=== PATIENT | female | born 1970 | race Caucasian/White ===

== ENCOUNTER → 2023-06-16 09:29 | Outpatient (BNVA) | payer OTHER, SELFPAY | PROVIDERS: PCP Hospitalist; Visit Provider Physician Assistant Medical | DX: M54.42 Lumbago with sciatica, left side (principal) | CPT/HCPCS: 99202 ==

== ENCOUNTER → 2023-07-02 15:02 | Outpatient (BNVA) | payer OTHER, SELFPAY | PROVIDERS: PCP Hospitalist; Visit Provider Physician Assistant | DX: M54.42 Lumbago with sciatica, left side (principal) | CPT/HCPCS: 99213 ==

== ENCOUNTER 2025-04-23 12:15 | Emergency (ER) | payer BC, SELFPAY ==
--- NOTE | ~2025-04-23 | CT_ITS ---
CLINICAL HISTORY: weakness, SOB, hx of clotting disorder CT angiography chest with contrast. 3D Postprocessing. Comparison: None provided Findings: The heart is normal size. RV/LV ratio is normal. Unremarkable thoracic aorta and great vessels. No aneurysm. No acute pulmonary embolus. No mediastinal adenopathy or pericardial effusion. Lungs exhibit mosaic attenuation and mild airway thickening The visualized upper abdomen is unremarkable. Impression: No evidence of pulmonary embolism or heart strain. Airway thickening and mild air trapping. This document has been electronically signed by: David Bethea MD on 04/23/2025 15:22:01
[2025-04-23 12:26] VITALS: BP 127/68; BP 160/98; PULSE 80; PULSE 82; RESP 16; TEMP 36.7; O2SAT 100; O2SAT 99; BMI 32.6
--- NOTE | 2025-04-23 12:27 | ED_ITS ---
HPI - General Adult General Chief complaint: General Medical Stated complaint: COMPLAINTS OF DIZZINESS Time Seen by Provider: 04/23/25 12:27 Source: patient, family (patient's ) and EMS Mode of arrival: EMS Limitations: no limitations History of Present Illness ED Provider: Jessie Witt PA-C HPI narrative: Patient is a 55 year old assigned female at with a history of factor 5 leiden and thyroid cancer s/p thyroidectomy presenting to the emergency department today with weakness / numbness / tingling. Patient states that her and her went on a 2 mile walk with little water or food intake and during the second half of that walk she began to felt unwell. States that she began to feel dizzy / lightheaded with full body numbness / fuzziness. Patient states that she attempted to eat and drink but that did not resolve her symptoms. Patient denies any abdominal pain, nausea, vomiting, fever, chills, blurry vision, double vision, loss of vision, chest pain, difficulty breathing, shortness of breath, back pain, night sweats, pain with urination, increased urinary frequency, increased urinary urgency, blood in her urine or stool, syncope or a near syncopal episode, recent trauma or falls, bowel incontinence, bladder incontinence, or any other complaints at this time. Relieving factors: none Exacerbating factors: none Associated symptoms: denies other symptoms Treatments prior to arrival: other (attempted to eat and drink - no improvement) Related Data Previous Rx's ?Medication ?Instructions ?Recorded cyclobenzaprine 10 mg tablet 10 mg PO BEDTIME PRN musc le spasm 06/16/23 #14 tabs naproxen 500 mg tablet 500 mg PO BID PRN back pain #28 06/16/23 tabs albuterol sulfate 90 mcg/actuation 2 puff inhalation Q 6H PRN 04/23/25 aerosol inhaler (Ventolin HFA) shortness of breath or wheezing #8.5 grams Allergies Allergy/AdvReac Type Severity Reaction Status Date / Time meclizine Allergy Unknown Unknown Verified 04/23/25 12:28 meclizine Allergy Unknown dystonia Uncoded 04/23/25 12:28 Review of Systems 2 Constitutional: Constitutional: Reports no additional constitutional complaints, Denies chills, Denies fever(s) and Denies night sweats Eyes: Eyes: Reports no additional eye complaints, Denies blurry vision, Denies change in vision, Denies diplopia, Denies eye discharge, Denies loss of vision and Denies eye pain ENT: Reports dizziness (/lightheadedness) Cardiovascular: Cardiovascular: Reports no additional cardiovascular complaints, Denies chest pain, Denies lightheadedness, Denies Loss of Consciousness and Denies dyspnea Respiratory: Respiratory: Reports no additional respiratory complaints and Denies dyspnea Gastrointestinal: Gastrointestinal: Reports no additional gastrointestinal complaints, Denies abdominal pain, Denies melena, Denies hematochezia, Denies change in bowel habits and Denies change in stool character Genitourinary: Genitourinary: Denies hematuria, Denies urinary frequency, Denies dysuria, Denies urinary incontinence, Denies urinary hesitancy and Denies urinary urgency Musculoskeletal: Musculoskeletal: Reports no additional musculoskeletal complaints, Reports numbness and Reports tingling Neurologic: Reports dizziness (/lightheadedness), Denies loss of vision, Reports numbness and Reports tingling Psychiatric: Psychiatric: Reports no additional psychiatric complaints Endocrine: Endocrine: Reports no additional endocrine complaints Hematologic/Lymphatic: Hematologic/Lymphatic: Reports no additional hematologic/lymphatic complaints Allergic/Immunologic: Allergic/Immunologic: Reports no additional allergic/immunologic complaints PMFSH Past Medical History Attestation statement: The following information was validated with the patient. (all information validated with the patient's ) Source: old records reviewed, obtained from family (patient's provided additional history and confirmed the history provided by the patient.) and nursing notes reviewed Social History Social History Advance Directives: No Advance Directives Information Provided: No Do you have a plan to hurt others: No Plan Physical Exam ED Vital Signs: Vital Signs - 24 hr 04/23/25 12:26 04/23/25 15:10 Temperature 98.0 F 97.8 F Pulse Rate 82 64 Respiratory Rate 16 20 Blood Pressure 127/68 146/70 H Pulse Oximetry 100 100 Oxygen Delivery Method Room Air Room Air BMI result Body Mass Index 32.6 Const General: cooperative, no acute distress, alert and awake Nutritional Appearance: well nourished Orientation/consciousness: patient oriented x3 HENMT Head: Yes normal to inspection and Yes atraumatic Ears: hearing grossly normal bilaterally and external ears normal General nose exam: Normal external nose present, no nasal discharge noted and no epistaxis Face and sinus: Yes normal facial exam, No abrasion and No laceration Mouth: Normal oral and palatal mucosa present, no drooling and no muffled voice Eyes General: appearance normal, both eyes and all related structures Periorbital: periorbital findings normal Eyelids: Yes eyelids normal Conjunctivae: conjunctivae normal Pupils: Equal, round and reactive pupils present EOM: EOMs intact bilaterally Neck Neck: Yes normal visual inspection, Yes full ROM and Yes no lymphadenopathy Resp Effort & Inspection: normal respiratory effort and able to speak in complete sentences Neuro General: patient oriented x3, moves all extremities and CN's II-XI intact bilaterally Cranial nerves: Yes Equal, round and reactive pupils present Cognition (Neuro): normal cognition Extrem General: Yes normal to inspection, Yes full ROM and Yes capillary refill normal Psych Appearance: grossly normal Mental Status: mental status grossly normal Affect: normal affect Attitude: cooperative Thought process: Normal thought process present Thought content: Normal thought content present Insight: Good insight present (Psych) Medications Administered Discontinued Medications Generic Name Dose Route Start Last Admin Trade Name Denilson PRN Reason Stop Dose Admin Sodium Chloride 1,000 mls @ 999 mls/hr 04/23/25 12:45 04/23/25 13:19 Ns IV 04/23/25 13:45 999 mls/hr .Q1H1M CARMELLA Administration Iohexol 100 ml 04/23/25 14:17 04/23/25 14:18 Iohexol 350 Mg/Ml 100 Ml Infus..Btl IV 04/23/25 14:18 65 ml ONCE ONE Administration Medical Decision Making Medical Decision Making MDM Narrative: Patient is a 55 year old assigned female at with a history of factor 5 Leiden and thyroid cancer s/p thyroidectomy presenting to the emergency department today with weakness / numbness / tingling. Patient's physical exam was unremarkable. Patient's blood work was unremarkable. Patient's EKG was unremarkable. Patient's CT PE showed no acute process but did show some airway thickening with mild air trapping. I explained my physical exam findings as well as all test results to the patient and the patient's . I answered all questions asked by the patient and the patient's . Patient states that she was an asthmatic as a child. I explained to the patient her symptoms could be the result of a reactive airway episode vs. asthma exacerbation. I stressed the importance of the patient taking her medication as directed (either prescribed or as the over the counter packaging recommends). I stressed the importance of the patient following up with her primary care provider. I stressed the importance of the patient returning to the emergency department immediately if her symptoms were to worsen or if she were to develop any dizziness, shortness of breath, difficulty breathing, chest pain, blurry vision, loss of vision, nausea, vomiting, abdominal pain, fever, chills, back pain, or any other complaints. Patient and the patient's verbalized agreement and understanding with this treatment plan and discharge. Differential Diagnosis Differential Diagnoses: The differential diagnosis associated with the presentation includes Reactive airway disease Dehydration Admission/Observation Consideration of admission/observation: Escalation of care including admission/observation considered Patient would have been admitted to the hospital had her work up had any findings where hospital admission was appropriate and her clinical presentation warranted hospital admission. Lab Data [facility] Lab Attestation statement: I reviewed the patient's lab results. My interpretation of these results are in the [facility] Rationale portion of this note. 04/23/25 13:16 04/23/25 13:16 Labs: Lab Results 04/23/25 Range/Units 13:16 WBC 7.1 (4.8-10.8) X10*3/uL RBC 5.02 (4.20-5.50) X10*6/uL Hgb 12.9 (12.0-16.0) g/dl Hct 39.2 (37.0-47.0) % MCV 78.1 L (80.0-98.0) fL MCH 25.7 L (27.0-33.0) pg MCHC 32.9 (31.0-35.0) g/dl RDW 13.0 (11.0-16.0) % Plt Count 215 (160-400) X10*3/uL MPV 9.8 (9.4-12.3) fL Immature Gran % (Auto) 0.1 (0.0-0.4) % Neut % (Auto) 72.1 (45-73) % Lymph % (Auto) 20.9 (20-40) % [place] % (Auto) 5.8 (2-11) % Eos % (Auto) 0.7 (0-4) % Baso % (Auto) 0.4 (0-2) % Lymph # (Auto) 1.5 (1.2-4.9) X10*3/uL [place] # (Auto) 0.4 (0.1-1.2) X10*3/uL Eos # (Auto) 0.1 (0.0-0.4) X10*3/uL Baso # (Auto) 0.0 (0.0-0.2) X10*3/uL Abs Immat Gran (auto) 0.01 (0.00-0.03) X10*3/uL Absolute Neuts (auto) 5.1 (2.0-8.3) x10*3/uL Absolute Nucleated RBC 0.000 (0.0-0.012) X10*3/uL Nucleated RBC % (auto) 0.0 (0.0-0.2) /100WBC PT 11.1 (10.9-12.4) SEC INR 1.0 (0.9-1.1) Sodium 144 (135-145) mmol/L Potassium 3.6 (3.3-5.1) mmol/L Chloride 113 H (96-108) mmol/L Carbon Dioxide 21 L (22-29) mmol/L Anion Gap 14 (12-20) BUN 13 (9-16) mg/dL Creatinine 1.05 (0.5-1.4) mg/dL Estim Creat Clear Calc 64.3 Estimated GFR 54 Random Glucose 157 H (60-115) mg/dL Calcium 8.7 (8.4-10.2) mg/dL Magnesium 1.9 (1.6-2.6) mg/dL Total Bilirubin 0.3 (0.0-1.0) mg/dL AST 20 (5-31) U/L ALT 18 (0-31) U/L Alkaline Phosphatase 110 (39-117) U/L Troponin I High Sens < 2.7 (<3.5-17.0) ng/L B-Natriuretic Peptide 28 (<100) pg/mL Total Protein 5.7 L (6.5-8.0) g/dL Albumin 3.8 (3.5-5.0) g/dL Independent Interpretation I performed an independent interpretation of an: EKG and CT Scan Interpretation: My interpretation is in agreement with the radiologist's impression of this imaging study. L Report Number: [id number]: Total DLP = 351.00 mGy-cm CLINICAL HISTORY: weakness, SOB, hx of clotting disorder CT angiography chest with contrast. 3D Postprocessing. Comparison: None provided Findings: The heart is normal size. RV/LV ratio is normal. Unremarkable thoracic aorta and great vessels. No aneurysm. No acute pulmonary embolus. No mediastinal adenopathy or pericardial effusion. Lungs exhibit mosaic attenuation and mild airway thickening The visualized upper abdomen is unremarkable. Impression: No evidence of pulmonary embolism or heart strain. Airway thickening and mild air trapping. This document has been electronically signed by: David Bethea MD on 04/23/2025 15:22:01 Dictated By: David Bethea MD Signed By: Electronically signed by David Bethea MD 04/23/25 1523 Vent. Rate: 71 BPM Atrial Rate: 71 BPM P-R Int: 144 ms QRS Dur: 80 ms QT Int: 416 ms P-R-T Axes: 32 16 23 degrees QTcB Int: 452 ms Normal sinus rhythm Low voltage QRS Borderline ECG When compared with ECG of 08-Mar-2007 13:36, MANUAL COMPARISON REQUIRED PREVIOUS ECG IS INCOMPATIBLE DD/ 1319 Radiology Impression Discussion of test interpretation with radiology: I have reviewed the radiologist's reading. Independent Historian Clinical information obtained from an independent historian. History obtained from or confirmed by: EMS (EMS provided additional history and confirmed the history provided by the patient. ) Discharge Plan Discharge Clinical Impression: Reactive airway disease Patient Disposition: Home, Self-Care Instructions: How Your Lungs Work (ED) Additional Instructions: Your work up today was reassuring that there is no emergent cause for your symptoms. Follow up with a primary care provider. Return to the emergency department immediately if your symptoms worsen or if you develop any numbness, tingling, dizziness, shortness of breath, difficulty breathing, chest pain, blurry vision, loss of vision, nausea, vomiting, abdominal pain, fever, chills, back pain, or any other complaints. L If you do not have a primary care provider - call any of the below numbers to establish and follow up with a primary care provider. [facility] Primary Care ([place]) [phone] [place] [address], [address] [facility] Primary Care (2 [address] [place]) [phone] [place] [address], [address] [facility], [address] [facility] Primary Care ([address] [place]) [phone] [place] [address], [address] [facility], [address] [facility] Primary Care ([place]) [phone] [place] [address] 2 [facility], [address] [facility] Family Medicine [phone] [place] [address], [address] Please see the information below about our Patient Portal. If you are not yet enrolled in the [facility] Patient Portal, you will receive an enrollment email invitation following your visit to any [facility] setting. You may also self-enroll in the Patient Portal by visiting our website: [email or web address] The following information is required to access the Patient Portal: - Your [facility] Medical Record Number - Your personal home email address (must match what is in your electronic medical record, Registration staff can assist with this) - Name - Date of Capabilities of the Patient Portal: - Message some providers - View upcoming appointments - Access your health summary, medical history, and visit history - View current conditions and allergies - View procedure and lab results - View your medications, including guidelines, side effects, and precautions - Complete pre-appointment questionnaires requested by your provider - Ready summary reports of your office visits and procedures To access the Patient Portal Mobile [employer], follow these directions: - Search [employer] in the [employer] Store or [employer] - Download the [employer] - Search for [facility] - Enter your login/password Prescriptions: New albuterol sulfate [Ventolin HFA] 90 mcg/actuation HFA aerosol inhaler 2 puff inhalation Q6H PRN (Reason: shortness of breath or wheezing) Qty: 8.5 0RF No Action cyclobenzaprine 10 mg tablet 10 mg PO BEDTIME PRN (Reason: muscle spasm) Qty: 14 0RF naproxen 500 mg tablet 500 mg PO BID PRN (Reason: back pain) Qty: 28 0RF Print Language: Telugu
--- NOTE | 2025-04-23 12:32 | ECG_ITS ---
Test Reason : dizziness Blood Pressure : */* mmHG Vent. Rate : 71 BPM Atrial Rate : 71 BPM P-R Int : 144 ms QRS Dur : 80 ms QT Int : 416 ms P-R-T Axes : 32 16 23 degrees QTcB Int : 452 ms Normal sinus rhythm Low voltage QRS Borderline ECG When compared with ECG of 08-Mar-2007 13:36, Low voltage QRS is now Present Referred By: Jessie Witt Electronically Signed By: JOAO PARSONS MD
[2025-04-23] MEDS: 0.9 % Sodium Chloride 1,000 ML 999 ML IV (13:19)
[2025-04-23 13:22] LABS: Basophils Percent Auto 0.4 % (0-2); Eosinophils Absolute Auto 0.1 X10*3/uL (0.0-0.4); Eosinophils Percent Auto 0.7 % (0-4); Hematocrit 39.2 % (37.0-47.0); Hemoglobin 12.9 g/dl (12.0-16.0); Imm Gran Abs Auto 0.01 X10*3/uL (0.00-0.03); Imm Gran Pct Auto 0.1 % (0.0-0.4); Lymphocytes Absolute Auto 1.5 X10*3/uL (1.2-4.9); Lymphocytes Percent Auto 20.9 % (20-40); MANUAL DIFF FLAG NO; Mean Corpuscular HGB Conc 32.9 g/dl (31.0-35.0); Mean Corpuscular Hemoglobin 25.7 pg (27.0-33.0); Mean Corpuscular Volume 78.1 fL (80.0-98.0); Mean Platelet Volume 9.8 fL (9.4-12.3); Monocytes Absolute Auto 0.4 X10*3/uL (0.1-1.2); Monocytes Percent Auto 5.8 % (2-11); Neutrophils Absolute Auto 5.1 x10*3/uL (2.0-8.3); Neutrophils Percent Auto 72.1 % (45-73); Platelet Count 215 X10*3/uL (160-400); Red Blood Count 5.02 X10*6/uL (4.20-5.50); White Blood Count 7.1 X10*3/uL (4.8-10.8)
[2025-04-23 13:27] LABS: Prothrombin Time 11.1 SEC (10.9-12.4)
[2025-04-23 13:35] LABS: Alanine Aminotransferase 18 U/L (0-31); Albumin Level 3.8 g/dL (3.5-5.0); Alkaline Phosphatase 110 U/L (39-117); Anion Gap 14 (12-20); Aspartate Amino Transferase 20 U/L (5-31); Bilirubin Total 0.3 mg/dL (0.0-1.0); Blood Urea Nitrogen 13 mg/dL (9-16); Calcium 8.7 mg/dL (8.4-10.2); Carbon Dioxide 21 mmol/L (22-29); Chloride 113 mmol/L (96-108); Creatinine Clr Calc Pharmacy 64.3; Estimated Glomerular Filt Rate 54; Glucose Random 157 mg/dL (60-115); Magnesium 1.9 mg/dL (1.6-2.6); Potassium 3.6 mmol/L (3.3-5.1); Sodium 144 mmol/L (135-145); Total Protein 5.7 g/dL (6.5-8.0)
[2025-04-23 13:41] LABS: B Type Natriuretic Peptide 28 pg/mL (<100)
[2025-04-23 13:51] LABS: Troponin-I High Sensitivity < 2.7 ng/L (<3.5-17.0)
[2025-04-23] MEDS: iohexoL 350 MG/ML 100 ML INFUS..BTL IV (14:18)
[2025-04-23 15:10] VITALS: BP 146/70; PULSE 64; RESP 20; TEMP 36.6; O2SAT 100
[2025-04-23] MEDS: dexAMETHasone sod phosphate 10 MG/ML VIAL IVPUSH (15:41)
[2025-04-23 16:32] VITALS: BP 146/70; PULSE 64; RESP 20; TEMP 36.6; O2SAT 100
== END 2025-04-23 16:33 | disposition home or self-care (01) ==
PROVIDERS: Physician Assistant Medical; Emergency Provider Emergency Medicine
DX: J45.909 Unspecified asthma, uncomplicated (principal); R06.02 Shortness of breath; R94.31 Abnormal electrocardiogram [ECG] [EKG]; R11.0 Nausea; R20.0 Anesthesia of skin; Z79.899 Other long term (current) drug therapy
CPT/HCPCS: 36415; 71275; 80053; 83735; 83880; 84484; 85025; 85610; 93005; 96361; 96374; 99284; 99285; J1100; Q9967

== ENCOUNTER → 2025-04-23 12:32 | Outpatient (BNV) | payer BC, SELFPAY | PROVIDERS: Emergency Provider Emergency Medicine; Visit Provider Radiology Vascular & Interventional Radiology | DX: R06.02 Shortness of breath (principal) | CPT/HCPCS: 71275 ==

== ENCOUNTER → 2025-04-23 12:32 | Outpatient (BNV) | payer BC, SELFPAY | PROVIDERS: Emergency Provider Emergency Medicine; Visit Provider Internal Medicine Cardiovascular Disease | DX: R42 Dizziness and giddiness (principal) | CPT/HCPCS: 93010 ==